=== PATIENT | female | born 1940 | race Caucasian/White ===

== ENCOUNTER 2023-10-21 09:42 | Outpatient (AMB) | payer MEDICARE, SELFPAY ==
--- NOTE | 2023-10-21 10:07 | MHC.OFFVIS ---
Intake Intake Visit Reasons: [employer]- B/L hip pain Intake Note: Helena is a 83 year old female who presents today as a new patient for a evaluation of her bilateral hip discomfort. The patient did undergo right total hip replacement surgery in 2010. She denies any fevers or chills. Patient reports that her discomfort is along the lateral aspects of both of her hips. She has done physical therapy exercises which gave her minimal relief. She continues to be seen at the pain management clinic in [place] for low back pain and ?sciatica?. She has also been seen by Dr. Edwards from neuro surgery. She was told that at some point in the future she may need low back surgery if her symptoms worsen. Allergies ciprofloxacin Allergy (Verified 10/21/23 10:28) Unknown codeine Allergy (Verified 10/21/23 10:28) Unknown hydrocodone Allergy (Verified 10/21/23 10:28) Unknown tetracycline Allergy (Verified 10/21/23 10:28) Unknown nacin Allergy (Uncoded 10/21/23 10:28) Unknown [facility] Surgical History (Updated 10/21/23 @ 10:29 by Jorge Marshall) History of total right hip arthroplasty Physical Exam Const Other: Well-nourished well-developed very friendly female awake alert and oriented x3 in no acute distress Extrem Other: Bilateral lower extremity examination shows good capillary refill, no skin lesions noted, normal sensation light touch Right hip examination shows that the surgical incision is well healed, no erythema, minimal discomfort with range of motion, mild tenderness over her bursa Left hip examination shows full range of motion when compared to her right hip, mild tenderness over her bursa, minimal discomfort with range of motion Results Reviewed Results Reviewed: X-rays of the patient's right hip show a total hip arthroplasty in good position with no signs of loosening, no acute bony abnormalities X-rays of the patient's left hip show mild to moderate diffuse joint space narrowing, no acute bony abnormalities Assessment & Plan Assessment & Plan (1) Right hip pain: Code(s): M25.551 - Pain in right hip (2) Left hip pain: Code(s): M25.552 - Pain in left hip Plan Ms. Martinez continues to do fairly well after undergoing right total hip replacement surgery in 2010. She does have intermittent discomfort along the lateral aspects of both of her hips most likely due to greater trochanteric bursitis. At this point the patient's symptoms are tolerable to her. We will hold off on a cortisone injection. She does have chronic low back pain. She will follow up with her pain management team as scheduled. If her symptoms worsen she will make a follow-up appointment with Dr. Edwards from neuro surgery. She will contact me prior to her annual follow-up appointment should any questions or concerns arise. Feel free to call me at any time should questions regarding her orthopedic management arise. I spent 22 minutes in reviewing the patient's records and imaging studies, seeing the patient and documenting in the medical record. Orders: Orders XR hip LT min 2V 10/21/23 M25.552 - Pain in left hip XR hip RT 1V 10/21/23 M25.551 - Pain in right hip Coding Level of Care Code Est Pt Level 2 (19425) Diagnoses Right hip pain M25.551 Left hip pain M25.552
== END 2023-10-21 10:34 | disposition home or self-care (01) ==
PROVIDERS: Visit Provider Orthopaedic Surgery
DX: M25.551 Pain in right hip (principal); M25.552 Pain in left hip; Z96.641 Presence of right artificial hip joint
CPT/HCPCS: 99213

== ENCOUNTER 2023-10-21 10:12 | Outpatient (REF) | payer MEDICARE, SELFPAY | END 2023-10-21 10:13 | disposition home or self-care (01) | LOC: HO.HOSX 10:12 | PROVIDERS: Visit Provider Orthopaedic Surgery | DX: M25.552 Pain in left hip (principal); M25.551 Pain in right hip; Z96.641 Presence of right artificial hip joint | CPT/HCPCS: 73501; 73502; 99212 ==